=== PATIENT | male | born 1975 | race Caucasian/White ===

== ENCOUNTER 2019-01-12 08:21 | Inpatient (IN) | payer OTHER ==
[~2019-01-12] VITALS: Ht 177.8 cm; Wt 68.2 kg
--- NOTE | 2019-01-12 08:57 | NUR ---
PATIENT MEETS [facility]. CINA=[id number]. PATIENT WANTS TO GO TO [facility] FOR HIS AFTERCARE PLAN. MARGRET ANDERSON B.A. [employer]
--- NOTE | 2019-01-12 09:05 | NUR ---
Time: 904 A 43 year old MALE admitted to under services of NEELAM ZAVALA DO. [place]. [place]. Chief complaint: HERE FOR [facility] FOR OPIATE WITHDRAWAL. REPORTS USING IV HEROIN 1/2-1 GRAM DAILY, LAST USED YESTERDAY AT 11 AM PER PT. STATES HE IS CURRENTLY EXPERIENCING NAUSEA, SLIGHT ACHES, RESTLESS LEGS AND ANXIETY. RA MILLER
--- NOTE | 2019-01-12 09:30 | NUR ---
Spoke with Dr. Mclean and notified him of pt arrival to the floor.
[2019-01-12 10:54] LABS: BASO % 0.3 % (0.0-1.0); EOS # 0.1 10*3/uL (0.0-0.4); EOS % 1.1 % (1.0-4.0); HEMATOCRIT 45.7 % (42.0-52.0); HEMOGLOBIN 15.6 g/dl (14.0-18.0); LYMPH # 0.9 10*3/uL (1.3-4.4); LYMPH % 11.2 % (27.0-41.0); MEAN CELL VOLUME 91.4 fl (80.0-94.0); MEAN CORPUSCULAR HGB 31.2 pg (27.0-31.0); MEAN CORPUSCULAR HGB CONC 34.1 g/dl (33.0-37.0); MEAN PLATELET VOLUME 9.3 fl (9.6-12.3); MONO # 0.7 10*3/uL (0.1-1.0); MONO % 9.3 % (3.0-9.0); NEUT # 6.1 10*3/uL (2.3-7.9); NEUT % 77.8 % (47.0-73.0); PLATELET COUNT AUTOMATED 243 10*3/uL (130-400); RED CELL DISTRI WIDTH 12.3 % (0-14.5); WHITE BLOOD COUNT 7.9 10*3/uL (4.8-10.8)
[2019-01-12 11:00] LABS: INTERNATIONAL NORM RATIO 1.1 (2.0-3.5)
[2019-01-12 11:06] LABS: ALBUMIN 3.3 gm/dl (3.1-4.5); ALKALINE PHOSPHATASE 64 U/L (45-117); BUN 10 mg/dl (7-24); CHLORIDE 108 mmol/L (98-107); CREATININE 0.61 mg/dL (0.70-1.30); ETHYL ALCOHOL < 3.0 mg/dl (<3); POTASSIUM 3.7 mmol/L (3.5-5.1); SGOT/AST 17 IU/L (3-35); SGPT/ALT 29 U/L (12-78); SODIUM 138 mmol/L (136-145); TOTAL PROTEIN 7.1 gm/dL (6.4-8.2)
[2019-01-12 12:00] VITALS: BP 149/76
[2019-01-12 16:00] VITALS: BP 112/61
--- NOTE | 2019-01-12 16:19 | NUR ---
Medicated with robaxin, tylenol, vistaril, zofran, bentyl and immodium for multiple symptoms of withdrawal including muscle aches, pains, anxiety, nausea and diarrhea.
[2019-01-12 20:00] VITALS: BP 115/62
[2019-01-13] VITALS: BP 110/58
--- NOTE | 2019-01-13 07:30 | NUR ---
Alert and oriented this am. C/o anxiety. States he is also experiencing muscle aches and discomfort, restless legs. Medicated with routine prn meds as needed see emar. Otherwise states he does feel better then yesterday at admission. States meds are helping.
[2019-01-13 08:00] VITALS: BP 110/75
--- NOTE | 2019-01-13 08:00 | NUR ---
Pt reports that meds given earlier were effective for symptom relief.
[2019-01-13 12:00] VITALS: BP 126/75
--- NOTE | 2019-01-13 14:00 | NUR ---
Pt reports that prn medication given earlier was effective.
[2019-01-13 16:00] VITALS: BP 119/77
[2019-01-13 20:00] VITALS: BP 119/74
--- NOTE | 2019-01-13 20:01 | NUR ---
ASSUMED CARE OF PATIENT. PATIENT IS RESTING IN BED WITH EASY AND REGULAR RESPERS ON ROOM AIR. ASSESSMENT IS COMPLETE WITH NO S/S OF DISTRESS NOTED. PATIENT DOES C/O HEADACHE AND ANXIETY, PRN VISTARIL AND MOTRIN GIVEN AND PATIENT TOLERATED WELL. BED IS LOW, LOCKED, AND CALL LIGHT IS WITHIN REACH. SEE SHIFT ASSESSMENT.
--- NOTE | 2019-01-13 20:53 | NUR ---
PRN TRAZADONE GIVEN FOR C/O INSOMNIA. CALL LIGHT IS WITHIN REACH WILL MONITOR EFFECT.
[2019-01-14] VITALS: BP 101/58
--- NOTE | 2019-01-14 02:07 | NUR ---
0300 MEDICATION GIVEN AT THIS TIME. PATIENT TOLERATED WELL, CALL LIGHT IS WITHIN REACH. NO C/O VOICED AT THIS TIME.
--- NOTE | 2019-01-14 05:00 | NUR ---
PATIENT IS RESTING COMFORTABLY WITH EASY AND REGULAR RESPERS ON ROOM AIR. CALL LIGHT IS WITHIN REACH.
[2019-01-14 08:00] VITALS: BP 116/72
[2019-01-14 11:54] LABS: BILIRUBIN NEGATIVE (NEGATIVE); BLOOD NEGATIVE (NEGATIVE); CLARITY CLEAR (CLEAR); COLOR YELLOW (YELLOW); GLUCOSE NEGATIVE (NEGATIVE); KETONE NEGATIVE (NEGATIVE); LEUKO ESTERASE TRACE (NEGATIVE); NITRITE NEGATIVE (NEGATIVE); UROBILINOGEN 0.2 E.U./dl (0.2-1.0)
[2019-01-14 12:00] VITALS: BP 124/78
[2019-01-14 12:04] LABS: URINE AMPHETAMINES < 1000 (1000ng/ml); URINE BARBITURATES < 200 (200ng/ml); URINE BENZODIAZEPINES < 200 (200ng/ml); URINE CANNABINOIDS (THC) < 50 (50ng/ml); URINE COCAINE < 300 (300ng/ml); URINE METHADONE < 300 (300ng/ml); URINE OPIATES < 300 (300ng/ml)
[2019-01-14 12:06] LABS: URINE PHENCYCLIDINE < 25 (25ng/ml)
[2019-01-14 12:17] LABS: BACTERIA TRACE; EPITHELIAL CELLS 0-2; MUCOUS TRACE
[2019-01-14 16:00] VITALS: BP 118/72
[2019-01-14 20:00] VITALS: BP 121/78
--- NOTE | 2019-01-14 21:22 | NUR ---
PATIENT RESTING WITH NO S/S OF DISTRESS. DENIES ANY NEEDS AT THIS TIME. BED IN LOWEST POSITION, CALL LIGHT IN REACH
--- NOTE | 2019-01-14 22:59 | NUR ---
24 HR chart check completed.
--- NOTE | 2019-01-14 23:54 | NUR ---
MEDICATED WITH PRN TRAZADONE FOR C/O SLEEPLESSNESS
[2019-01-15] VITALS: BP 128/73
[2019-01-15 06:23] LABS: HEMATOCRIT 45.9 % (42.0-52.0); HEMOGLOBIN 15.6 g/dl (14.0-18.0); MEAN CELL VOLUME 92.2 fl (80.0-94.0); MEAN CORPUSCULAR HGB 31.3 pg (27.0-31.0); MEAN PLATELET VOLUME 9.6 fl (9.6-12.3); PLATELET COUNT AUTOMATED 279 10*3/uL (130-400); RED BLOOD COUNT 4.98 10*6/uL (4.50-5.90); RED CELL DISTRI WIDTH 12.2 % (0-14.5); WHITE BLOOD COUNT 6.7 10*3/uL (4.8-10.8)
[2019-01-15 06:26] LABS: BUN 15 mg/dl (7-24); CHLORIDE 109 mmol/L (98-107); CREATININE 0.72 mg/dL (0.70-1.30); POTASSIUM 3.7 mmol/L (3.5-5.1); SODIUM 141 mmol/L (136-145)
[2019-01-15 07:02] LABS: BASOPHILS 1 % (0-1); PLATELET SUFFICIENCY NORMAL (NORMAL); TOTAL CELLS COUNTED 100 #CELLS
[2019-01-15 08:00] VITALS: BP 118/80
[2019-01-15 12:00] VITALS: BP 127/84
[2019-01-15 16:03] VITALS: BP 125/70
--- NOTE | 2019-01-15 16:12 | NUR ---
PT DC. AWAITING TRANSPORT.
--- NOTE | 2019-01-15 17:25 | NUR ---
Discharge instructions reviewed with patient/family. Patient receptive and verbalizes understanding. Follow-up care arranged. Written instructions given to patient/family. CHERELLE SEN
== END 2019-01-15 17:25 | disposition home or self-care (01) | DRG 897 ==
LOC: 4E 08:21
PROVIDERS: Registered Nurse; ADMIT Internal Medicine
DX: F11.23 Opioid dependence with withdrawal (principal); E44.0 Moderate protein-calorie malnutrition; F17.220 Nicotine dependence, chewing tobacco, uncomplicated; B19.20 Unspecified viral hepatitis C without hepatic coma; E87.8 Other disorders of electrolyte and fluid balance, not elsewhere classified; R73.9 Hyperglycemia, unspecified; F41.9 Anxiety disorder, unspecified; G25.81 Restless legs syndrome; Z80.41 Family history of malignant neoplasm of ovary